=== PATIENT | female | born 1980 | race Asian ===

== ENCOUNTER 2017-01-17 19:35 | Emergency (ER) | payer BC, OTHER ==
[~2017-01-17] VITALS: Ht 165.1 cm; Wt 59.0 kg
[2017-01-17 19:40] VITALS: BP_SYST 107
--- NOTE | 2017-01-17 20:12 | NUR ---
Patient to ER bed 06 to gown for evaluation. Side rails up. Report given to Clarence
--- NOTE | 2017-01-17 20:20 | NUR ---
Patient to ED for evaluation of abd pain 12/25, with c/o nausea, vomiting and diarrhea since 1600 today. Patient reports that she went out for breakfast and that the eggs tasted strange. No one else is sick from the group that went out to eat. Patient is awake, alert and oriented in nad, vital signs stable, respirations even and unlabored, skin warm and dry to touch. Prior to being placed in room, patient ambulated to bathroom with slow, steady gait and provided urine sample which was sent to lab. Awaiting evaluation by ER MD-will continue to observe and assess. Male visitor at bedside, update/emotional support given, questions answered.
--- NOTE | 2017-01-17 20:20 | NUR ---
Note mraitzaone in EDM - 01/17/17 at 2037 by JOSEPH Patient to ED for evaluation of nausea, vomiting, abdominal pain, and diarrhea since 0900 today. Patient is awake, alert and oriented in nad, vital signs stable, respirations even and unlabored, skin warm and dry to touch. Patient ambualted to room with slow, steady gait. Awaiting evaluation by ER MD-will continue to observe and assess.
--- NOTE | 2017-01-17 20:55 | NUR ---
Dr Sweet at bedside to evaluate patient.
[2017-01-17] MEDS ORDERED: MORPHINE 2 MG/ML INJ. SYRINGE IVP ONE (21:15)
[2017-01-17] MEDS ORDERED: ONDANSETRON HCL 4 MG/2 ML VIAL IVP ONE (21:15)
--- NOTE | 2017-01-17 21:15 | NUR ---
IV started on first attempt, using aseptic technique using #20 gauge IV. Bloods drawn and given to lab. Patient tolerated well.
[2017-01-17 21:30] LABS: HEMOGLOBIN 14.3 g/dL (12.0-16.0); MEAN CORPUSCULAR HEMOGLOBIN 32 pg (27-31); MEAN CORPUSCULAR HGB CONC 33 % (32-36); MEAN CORPUSCULAR VOLUME 96 fL (79.0-98.0); PLATELET COUNT (AUTO) 266 K/uL (130-430); RED BLOOD CELL COUNT(AUTO) 4.49 MIL/uL (4.2-6.2); WHITE BLOOD COUNT (AUTO) 11.8 K/uL (4.8-10.8)
[2017-01-17 21:32] LABS: CALCIUM 9.2 mg/dL (8.4-11.0); CREATININE 1.03 mg/dL (0.55-1.30)
[2017-01-17 21:33] LABS: PROTHROMBIN TIME 11.1 SECS (9.5-12.5)
[2017-01-17 21:36] LABS: ALBUMIN 3.9 g/dL (3.4-4.8); TOTAL BILIRUBIN 0.3 mg/dL (0.0-1.0)
[2017-01-17 21:52] LABS: BILIRUBIN,URINE NEGATIVE (NEGATIVE); BLOOD, URINE NEGATIVE (NEGATIVE); CLARITY/URINE CLEAR (CLEAR); COLOR,URINE YELLOW (YELLOW); GLUCOSE,URINE NEGATIVE (NEGATIVE); KETONES,URINE TRACE (NEGATIVE); LEUKOCYTE ESTERASE ,URINE NEGATIVE (NEGATIVE); NITRITE, URINE NEGATIVE (NEGATIVE); PH,URINE 7.5 (5.0-8.0); PROTEIN URINE TRACE (NEGATIVE); UROBILINOGEN,URINE 0.2 (0.2-1.0)
[2017-01-17 22:05] LABS: RBC,URINE 0-3 /HPF (0-3); WBC,URINE 0-3 /HPF (0-3)
[2017-01-17 22:06] LABS: BACTERIA,URINE FEW /HPF (None Seen); MUCUS,URINE 1+ /LPF (None Seen)
[2017-01-17 22:27] LABS: ATYPICAL LYMPHOCYTES % 2 % (0-0); BAND % (MANUAL) 19 % (0-6); BASOPHILS % (MANUAL) 0 % (0-2); EOSINOPHILS % (MANUAL) 0 % (0-7); LYMPHOCYTES % (MANUAL) 7 % (20-46); MONOCYTES % (MANUAL) 4 % (0-11)
[2017-01-17] MEDS ORDERED: NACL 0.9% 1,000 ML IV ONE (22:45)
--- NOTE | 2017-01-17 23:05 | NUR ---
IVF infusing without difficulty-no redness or swelling noted at site
--- NOTE | 2017-01-17 23:20 | NUR ---
Consent signed for CT scan abdomen/pelvis with contrast. IVF continues to infuse without difficulty-no redness or swelling noted at site.
--- NOTE | 2017-01-17 23:31 | NUR ---
Patient to CT scan in stable condition, assessment remains unchanged.
[2017-01-17] MEDS ORDERED: IOHEXOL 100 ML IV ONE (23:41)
[2017-01-18 01:18] VITALS: BP_SYST 112
--- NOTE | 2017-01-18 01:18 | NUR ---
Patient given written and verbal discharge instructions and verbalizes understanding. ER MD discussed with patient the results and treatment provided. Patient in stable condition. ID arm band removed. IV catheter removed intact and dressing applied, no active bleeding. Rx of zofran and imodium given. Patient educated on pain management and to follow up with PMD. Pain Scale 2/10 tolerable for patient. Opportunity for questions provided and answered.
--- NOTE | 2017-01-18 10:22 | NUR ---
Dr. Olivo called with radiology discrepancy, appendix is at upper limits of normal. Patient was contacted, states that she still has 5/10 pain and diarrhea, though her vomiting was resolved. Patient advised to return to ER for further evaluation. Patient agrees stating she will be back within one hour.
== END 2017-01-18 01:12 | disposition home or self-care (01) ==
LOC: SED 19:35
DX: A08.4 Viral intestinal infection, unspecified (principal)
CPT/HCPCS: 36415; 74177; 80053; 81000; 81025; 82150; 83690; 85007; 85027; 85610; 96361; 96374; 96375; 99285; J2270; J2405; J7030; Q9967

== ENCOUNTER 2017-01-18 12:07 | Emergency (ER) | payer OTHER ==
[~2017-01-18] VITALS: Ht 165.1 cm; Wt 59.0 kg
--- NOTE | 2017-01-18 12:13 | NUR ---
Patient to ER bed 04 to gown for evaluation. Side rails up.
[2017-01-18 12:16] VITALS: BP_SYST 103
--- NOTE | 2017-01-18 12:30 | NUR ---
Dr. Bhatia at bedside.
--- NOTE | 2017-01-18 12:40 | NUR ---
Patient does not wish to proceed with medical care recommended by Dr. Bhatia. Patient given information related to possible complications, up to and including , which could occur as a result of leaving hospital at this time. Patient verbalizes understanding of risks involved leaving against medical advice. Patient states that she will follow at another hospital. is irrate feels that they have been mistreated as Dr. Bhatia asked questions about where they lived and for how long during the abd exam. I reinforced that this was a distraction technique to more accuraqtely perform abdominal exam; patient and were intractable in their decision to leave. Patient refused to sign AMA form.
== END 2017-01-18 12:40 | disposition home or self-care (01) ==
LOC: SED 12:07
DX: R10.9 Unspecified abdominal pain (principal)
CPT/HCPCS: 99281